=== PATIENT | male | born 2000 | race Caucasian/White ===

== ENCOUNTER 2023-11-03 19:30 | Emergency (ER) | payer BC ==
[2023-11-03] MEDS ORDERED: Tetracaine HCl/PF 0.5% 4 ML Bottle EYERT ONE (21:10)
[2023-11-03] MEDS: Fluorescein 1 MG Ophth Strip EYERT ONE (21:25)
[2023-11-03] MEDS: Proparacaine 0.5% Ophth Soln 15 ML Bottle EYERT ONE (21:33)
== END 2023-11-03 21:51 | disposition home or self-care (01) ==
LOC: DL.ED 19:30
DX: T15.01XA Foreign body in cornea, right eye, initial encounter (principal); Z88.8 Allergy status to other drugs, medicaments and biological substances; W45.8XXA Other foreign body or object entering through skin, initial encounter
CPT/HCPCS: 65220; 99283-25; J3490

== ENCOUNTER 2024-11-08 12:42 | Emergency (ER) | payer BC ==
[2024-11-08] MEDS: Bacitracin Oint 1 GM U/D Packet TOP ONE (12:49)
[2024-11-08] MEDS: Ketorolac 30 MG/ML SDV IM ONE (12:49)
[2024-11-08] MEDS ORDERED: Ketorolac 30 MG/ML SDV ONE (12:53)
[2024-11-08] MEDS: Lidocaine 1% 5 ML VIAL INJECT ONE (13:28)
== END 2024-11-08 13:13 | disposition home or self-care (01) ==
LOC: DL.ED 12:42
DX: S01.01XA Laceration without foreign body of scalp, initial encounter (principal); Z91.018 Allergy to other foods; W22.8XXA Striking against or struck by other objects, initial encounter; Y93.89 Activity, other specified
CPT/HCPCS: 12013; 96372; 99282; A9270; J1885; J2003